=== PATIENT | female | born 1985 | race Caucasian/White ===

== ENCOUNTER → 2016-10-27 | Outpatient (CLI) | payer OTHER ==
[~2016-10-27] MED LIST: ACET-1256 PO; CYCL10TA6 PO; IBUP-1050 PO; METH4PAK4 PO; PRENTAB26 PO; SERT25TA PO; ZNTT/150 PO
--- NOTE | 2016-10-27 10:35 | DIAGNOSTIC IMAGING REPORT ---
LIMITED (US) CLINICAL HISTORY: LOW LYING PLACENTA COMPARISON STUDY: 09/27/2016 FINDINGS: A single alive intrauterine gestation was visualized. The maternal cervix measured 5 cm in length. The placenta is posterior, and ends 4 cm from the internal os. The fetus was in variable presentation. heart rate was 151. A detailed anatomic study was not performed. A single femur measurement was obtained. The femur measured 49 mm corresponding to an estimated postmenstrual age of 26 weeks and 3 days. IMPRESSION: Single live fetus in Federal presentation. The heart rate is 151. The placenta was posterior, and ended 4 cm from the internal os. Electronically signed by: Renzo Biggs M.D. 10/27/2016 10:33 AM Dictated Date/Time: 10/27/2016 10:31 AM
== END | disposition home or self-care (01) ==
LOC: C.ULTR 08:09
PROVIDERS: ATTEND Obstetrics & Gynecology
DX: O44.42 Low lying placenta NOS or without hemorrhage, second trimester (principal)

== ENCOUNTER 2016-12-20 11:24 | Observation (INO) | payer OTHER ==
[~2016-12-20 11:24] MED LIST changes: -PRENTAB26 PO; -ZNTT/150 PO
[2016-12-20] MEDS ORDERED: IV FLUIDS COMPLETED PRN (13:15)
--- NOTE | 2016-12-20 14:31 | HISTORY & PHYSICAL EXAMINATION ---
DATE OF ADMISSION: 12/20/2016 CHIEF COMPLAINT: Vaginal bleeding, intrauterine at 33 weeks gestation. HISTORY OF PRESENT ILLNESS: The patient is a 31-year-old 2, para 1, general health is good. She did have an episode of mid trimester bleeding at about 20 weeks during the present . At that time, she was ultrasounded and evaluated and she has not had any bleeding up until the day of admission. Her due date is well documented with first trimester ultrasound. She is due 02/03/2017. In 2014, she had a girl, 7 pounds at 38 and 1/2 weeks. She labored for 26 hours, pushed for 40 minutes. Her present has been uneventful except for an episode of bleeding at 20 weeks' gestation, which was evaluated with an ultrasound, in which eventually bleeding subsided. She called the morning of admission, said she had a vaginal pink discharge and some lower pelvic cramping. She was told to come into the hospital for evaluation. PAST MEDICAL HISTORY: She has a 2-year-old girl in good health. No history of rheumatic fever, heart disease, heart murmur, diabetes, tuberculosis. ALLERGIES: No known drug allergies. PAST SURGICAL HISTORY: She had a breast reduction at age 15. SOCIAL HISTORY: No smoking. No alcohol intake. Works as a clinical psychologist. FAMILY HISTORY: Mom is 49, in good health. Father 53, in good health. Has a half-sister, in good health. REVIEW OF SYSTEMS: She does have a history of migraine headaches. PHYSICAL EXAMINATION: GENERAL: Well developed, well-nourished 31-year-old white female, alert, oriented x3 and cooperative, in no acute distress, appears stated age. EYES: Conjunctivae are pink. Sclerae white, no evidence of jaundice. EARS: Had normal light reflex bilaterally. NOSE: Had normal mucosa. Septum is midline. There were no polyps. THROAT: Had no erythema or evidence of infection. Teeth are in good state of repair. HEAD: Normocephalic, normal distribution of hair. NECK: Supple. Trachea midline. Thyroid is not enlarged. There is no adenopathy appreciated. Both carotids are of good intensity. CHEST: Clear to auscultation and percussion. ABDOMEN: Abdominal size consistent with a 33-week intrauterine . There was no tenderness, no fundal tenderness. No CVA tenderness. MUSCULOSKELETAL: Revealed no calf tenderness. PELVIC: Revealed the presenting part to be floating. Cervix to be posterior, soft and closed. There was no blood on the examining glove. IMPRESSIONS OF THIS CASE: Status post breast reduction, history of mid trimester bleeding, intrauterine at 33 weeks with cramping and bleeding.
== END 2016-12-20 13:00 | disposition home or self-care (01) ==
LOC: C.OPB 11:24 → C.LD 11:25 → C.OPB 12:50 → C.LD 12:50
PROVIDERS: ADMIT Obstetrics & Gynecology; ATTEND Obstetrics & Gynecology
DX: O46.93 Antepartum hemorrhage, unspecified, third trimester (principal); Z3A.33 33 weeks gestation of pregnancy

== ENCOUNTER → 2017-01-05 | Outpatient (CLI) | payer OTHER ==
[~2017-01-05] MED LIST changes: +PRENTAB26 PO; +ZNTT/150 PO
== END | disposition home or self-care (01) ==
LOC: C.LABSPEC 14:58
PROVIDERS: ATTEND Obstetrics & Gynecology
DX: Z34.83 Encounter for supervision of other normal pregnancy, third trimester (principal)

== ENCOUNTER 2017-01-26 21:18 | Inpatient (IN) | payer OTHER ==
[~2017-01-26] VITALS: Ht 152.4 cm; Wt 71.8 kg
[~2017-01-26 21:18] MED LIST changes: -PRENTAB26 PO; -ZNTT/150 PO
[2017-01-26] MEDS ORDERED: LACTATED RINGER'S 1000ML 1,000 ML IV PRN (21:40)
[2017-01-26] MEDS ORDERED: DINOPROSTONE 10 MG INSERT PV STA (21:55)
[2017-01-26 22:04] LABS: HEMATOCRIT 33.2 % (37-47); MEAN CELL VOLUME 90.2 fL (80-100); MEAN CORPUSCULAR HEMOGLOBIN 30.7 pg (25-34); PLATELET COUNT 179 K/uL (130-400); RED BLOOD COUNT 3.68 M/uL (4.2-5.4); WHITE BLOOD COUNT 8.02 K/uL (4.8-10.8)
[2017-01-26 22:30] VITALS: Ht 152.4 cm; Wt 71.8 kg
[2017-01-26] MEDS ORDERED: PRENTAB26 PO (22:34)
[2017-01-26] MEDS ORDERED: ZNTT/150 PO (22:35)
[2017-01-27] MEDS ORDERED: LACTATED RINGER'S 1000ML 500 ML IV PRN ×2 (10:43→13:07)
[2017-01-27] MEDS ORDERED: OXYTOCIN 30 UNITS/500ML NSS IV PRN ×2 (10:45→19:00)
[2017-01-27] MEDS: LACTATED RINGER'S 1000ML 1,000 ML IV SCH ×2 (12:19→13:18)
[2017-01-27] MEDS ORDERED: BUPIVACAINE 0.25% 30 ML VIAL ONE (12:20)
[2017-01-27] MEDS ORDERED: EpHEDrine SULFATE INJ 50 MG/ML AMP ONE (12:21)
[2017-01-27] MEDS ORDERED: FENTANYL 2MCG/ML ROPIV 1.25MG/ML 100ML BAG EPI ONE (12:21)
[2017-01-27] MEDS ORDERED: FENTANYL CITRATE INJ 50 MCG/1 ML 2 ML VIAL ONE (12:21)
[2017-01-27] MEDS ORDERED: NALOXONE HCL INJ 1 MG in SODIUM CHLORIDE 0.9% 1000ML 1,000 ML IV PRN (13:07)
[2017-01-27] MEDS ORDERED: FENTANYL 2MCG/ML ROPIV 1.25MG/ML 100ML BAG EPI PRN (13:15)
[2017-01-27] MEDS ORDERED: NALBUPHINE HCL INJ 10 MG/ML AMP IV PRN (13:15)
[2017-01-27] MEDS ORDERED: EpHEDrine SULFATE INJ 50 MG/ML AMP IV PRN (13:15)
[2017-01-27] MEDS ORDERED: NALOXONE HCL INJ 0.4 MG/1 ML VIAL/CARP IV PRN (13:15)
[2017-01-27] MEDS ORDERED: DiphenhydrAMINE HCL 50 MG/ML VIAL IV PRN (13:15)
[2017-01-27] MEDS ORDERED: NURSING VERBAL MED ORDER ONE ×2 (16:30→16:45)
[2017-01-27] MEDS ORDERED: NURSING VERBAL MED ORDER SCH (16:30)
[2017-01-27] MEDS ORDERED: ACETAMINOPHEN 325 MG TAB ONE (16:54)
[2017-01-27] MEDS ORDERED: ONDANSETRON INJ 2 MG/ML 2 ML VIAL ONE (16:55)
[2017-01-27] MEDS ORDERED: OXYCODONE/ACETAMINOPHEN 5-325 TAB PO PRN (19:00)
[2017-01-27] MEDS ORDERED: SUPERCREAM 0.870 % 15GM JAR EXT PRN (19:00)
[2017-01-27] MEDS ORDERED: LANOLIN OINT EXT PRN ×2 (19:00)
[2017-01-27] MEDS ORDERED: ACETAMINOPHEN 325 MG TAB PO PRN (19:00)
[2017-01-27] MEDS ORDERED: ACETAMINOPHEN/CODEINE 300/30MG TAB PO PRN (19:00)
[2017-01-27] MEDS ORDERED: BENZOCAINE 20% AER SPR 82.5 GM CAN EXT PRN (19:00)
[2017-01-27] MEDS ORDERED: DIPHTHERIA/TETANUS/PERTUSSIS 0.5 ML SYR/VIAL IM. ONE (19:00)
[2017-01-27] MEDS ORDERED: HYDROCORTISONE ACETATE 25 MG SUPP PR PRN (19:00)
--- NOTE | 2017-01-27 19:07 | Anesthesia Procedure Note ---
Anesthesia Epidural Removal Nt Date & Time Jan 27, 2017 at 19:06 Vital Signs Pain Intensity: 0.0 Notes Mental Status: alert / awake / arousable, participated in evaluation Nausea / Vomiting: adequately controlled Pain: adequately controlled Airway Patency, RR, SpO2: stable & adequate BP & HR: stable & adequate Hydration State: stable & adequate Neuraxial Anesthesia: was administered Anesthetic Complications: no major complications apparent, pt satisfied with anesthetic care Epidural: removed without complications, with tip intact
[2017-01-27] MEDS ORDERED: ONDANSETRON INJ 2 MG/ML 2 ML VIAL IV PRN (19:30)
--- NOTE | 2017-01-27 19:31 | OPERATIVE REPORT ---
DATE OF OPERATION: 01/27/2017 DELIVERY NOTE The patient is a 31-year-old, 2, para 2. She is in good general health. Her blood type is B positive, she is rubella immune and vaginal beta strep screen negative. has been complicated by an unstable lie. She has been documented breech several times in the last 4 weeks. Her was confirmed by ultrasound and she is often switched from breech to vertex from one visit to another. On her last visit in the office, she was vertex. She was going to be 39 weeks' the following day and she was brought in for induction of labor. On admission, position was checked; she was found to be vertex, it was confirmed by bedside ultrasound. She was started off on a vaginal Cytotec tape. I left this in for 12 hours. She went from about 1 cm to about 3-4 with sporadic contractions. Eventually she had epidural, had membranes ruptured surgically and she was switched to IV Pitocin. She went to full dilatation and delivered a live female via direct occiput anterior position over an intact perineum. Nuchal cord was reduced over the head prior to delivery of the shoulders. Shoulders were delivered without difficulty. Infant was suctioned through the mouth and the nose prior to delivery of the body. After delivery, cord was clamped and cut by the father. Cord blood was taken with IV Pitocin running. The placenta was removed intact. Hemostasis was good. Inspection of the perineum revealed no lacerations. My own estimation at one and five minute Apgars were 8 and 9 respectively and estimated blood loss of 300 mL. I attest to the content of the Intraoperative Record and any orders documented therein. Any exceptio ns are noted below.
[2017-01-27 20:15] VITALS: BP 116/63; PULSE 97; TEMP 36.8
[2017-01-27] MEDS: IBUPROFEN 600 MG TAB PO PRN (22:05)
[2017-01-27] MEDS: DOCUSATE SODIUM 100 MG CAP PO SCH (22:10)
[2017-01-27 23:30] VITALS: BP 120/79; PULSE 97; TEMP 36.8
[2017-01-28 04:00] VITALS: BP 108/71; PULSE 68; TEMP 36.5
[2017-01-28] MEDS: IBUPROFEN 600 MG TAB PO PRN ×2 (04:06→08:48)
[2017-01-28 07:05] LABS: HEMATOCRIT 34.2 % (37-47)
[2017-01-28] MEDS: FERROUS SULFATE 325 MG TAB PO SCH (08:43)
[2017-01-28] MEDS: DOCUSATE SODIUM 100 MG CAP PO SCH ×2 (08:43→20:02)
[2017-01-28] MEDS: PRENATAL VITAMIN TAB PO SCH (08:44)
[2017-01-28 09:10] VITALS: BP 97/65; PULSE 96; TEMP 36.6; O2SAT 96
[2017-01-28] MEDS: ACETAMINOPHEN/CODEINE 300/30MG TAB PO PRN ×3 (12:27→20:30)
--- NOTE | 2017-01-28 12:31 | Progress Note ---
Subjective Jan 28, 2017. Subjective conversation w/ patient Ambulation: ambulating normally Voiding: no voiding problems Passing Gas: Yes Diet Tolerance: Regular Diet Lochia: Small Feeding Type: Breast Feeding Review of Systems Constitutional: + fever Objective Vital Signs Date Time Temp Pulse Resp B/P Pulse Ox O2 Delivery O2 Flow Rate FiO2 01/28/17 09:10 36.6 96 16 97/65 96 Room Air 01/28/17 09:10 96 Room Air 01/28/17 04:00 36.5 68 18 108/71 Room Air 01/27/17 23:30 36.8 97 16 120/79 Room Air 01/27/17 20:15 36.8 97 20 116/63 Room Air Physical Exam General Appearance: WELL-APPEARING Abdomen: normal bowel sounds, non tender Fundus: Firm, Non-Tender Extremities: no pedal edema, no calf tenderness Laboratory Results Last 24 Hours Test 01/28/17 06:40 Hemoglobin 11.6 g/dL Hematocrit 34.2 % Assessment and Plan Post- Day#: 1
[2017-01-28 12:40] VITALS: BP 108/70; PULSE 61; TEMP 36.5; O2SAT 97
[2017-01-28 16:30] VITALS: BP 104/65; PULSE 69; TEMP 36.5; O2SAT 97
[2017-01-28] MEDS ORDERED: BISACODYL 5 MG TABEC PO SCH (20:00)
[2017-01-29 00:35] VITALS: BP 104/67; PULSE 81; TEMP 36.7; O2SAT 94
[2017-01-29] MEDS: ACETAMINOPHEN/CODEINE 300/30MG TAB PO PRN ×2 (01:34→09:25)
[2017-01-29] MEDS ORDERED: BISACODYL 10 MG SUPP PR PRN (07:00)
--- NOTE | 2017-01-29 08:55 | Progress Note ---
Subjective Jan 29, 2017. Subjective conversation w/ patient Ambulation: ambulating normally Voiding: no voiding problems Passing Gas: Yes Diet Tolerance: Regular Diet Lochia: Small Feeding Type: Breast Feeding Review of Systems Constitutional: + fever Objective Vital Signs Date Time Temp Pulse Resp B/P Pulse Ox O2 Delivery O2 Flow Rate FiO2 01/29/17 00:35 94 Room Air 01/29/17 00:35 36.7 81 16 104/67 94 Room Air 01/28/17 16:30 97 Room Air 01/28/17 16:30 36.5 69 14 104/65 97 Room Air 01/28/17 12:40 36.5 61 16 108/70 97 Room Air 01/28/17 09:10 36.6 96 16 97/65 96 Room Air 01/28/17 09:10 96 Room Air Physical Exam General Appearance: WELL-APPEARING Abdomen: non tender Fundus: Firm, Non-Tender Extremities: no pedal edema, no calf tenderness Assessment and Plan Post- Day#: 2
--- NOTE | 2017-01-29 08:57 | Discharge Instructions ---
Discharge Instructions Date of Service Jan 29, 2017. Admission Reason for Admission: IUP Discharge Discharge Diagnosis / Problem: unstable lie Discharge Goals Goal(s): Routine recovery after delivery Activity Recommendations Activity Limitations: as noted below ACTIVITY RECOMMENDATIONS: * Gradual return to full activity over the next 2-3 weeks. * No lifting - nothing heavier than baby over the next 2-3 weeks. * Do not engage in vigorous exercise, sexual activity or sports until cleared by your physician. * Do not drive or operate any motorized equipment until cleared by your physician. * You may shower/bathe daily. DIET: Resume Previous Diet If Breast-feeding: * Increase caloric intake by 500 calories, eat 3 well balanced meals, 2 high protein snacks a day and drink 6-8 8oz. glasses of fluid per day. BREAST CARE: If you are not breast feeding: * Wear a supportive bra 24 hours a day for one to two weeks. * Avoid stimulating your breasts and nipples as much as possible during the first few weeks after delivery. * When taking a shower, have the warm water hit your back, not breasts. * When your breasts feel full, apply ice packs. Usually three to four times a day helps ease the discomfort. * Take a mild pain medication (Tylenol / Motrin) when you are uncomfortable. If breast feeding: * Use breast milk to lubricate nipples. Lansinoh cream may be used for sore nipples. You do not need to remove cream prior to breast feeding. If using a different brand of cream, check the label for directions regarding removal of cream prior to nursing. * Wear a supportive bra. * If having problems with breasts or breast feeding, call a market intelligence consultant or your health care provider. OVER THE COUNTER MEDICATION: * For discomfort or pain, you may use Acetaminophen (Tylenol), Ibuprofen (Advil ), or Naproxen (Aleve) following the package directions. * For constipation you may use Colace following the package directions. SPECIAL CARE INSTRUCTIONS: * Vaginal rest (no tampons, douching, intercourse) until after doctor 's visit. * control as discussed with doctor. * Verbalizes understanding of car seat law as reviewed with patient nursing. * Car Seat hand-out given and reviewed with patient by nursing. * Shaken baby information reviewed with patient by nursing. Call you doctor if: * Temperature greater than or equal to 100.4 degrees F or 38.0 degrees C. Take your temperature twice daily for a week. * Bleeding becomes heavier than the heaviest part of your period - saturating a sanitary pad within an hour. * Passing large clots. * Bleeding has a foul smelling odor. * Signs and symptoms of phlebitis: leg pain, warm, red or swollen area on leg. * "Baby Blues" lasting longer than two weeks. ++ If you have had a and incision has increased pain, redness, swelling, presence of any drainage, or if the incision starts to open up. If you have any questions or concerns, call your health care practitioner at [phone]. FOLLOW-UP VISIT: Please call the office at to schedule a 6 week examination. . Instructions / Follow-Up Instructions / Follow-Up ACTIVITY RECOMMENDATIONS: * Gradual return to full activity over the next 2-3 weeks. * No lifting - nothing heavier than baby over the next 2-3 weeks. * Do not engage in vigorous exercise, sexual activity or sports until cleared by your physician. * Do not drive or operate any motorized equipment until cleared by your physician. * You may shower/bathe daily. DIET: Resume Previous Diet If Breast-feeding: * Increase caloric intake by 500 calories, eat 3 well balanced meals, 2 high protein snacks a day and drink 6-8 8oz. glasses of fluid per day. BREAST CARE: If you are not breast feeding: * Wear a supportive bra 24 hours a day for one to two weeks. * Avoid stimulating your breasts and nipples as much as possible during the first few weeks after delivery. * When taking a shower, have the warm water hit your back, not breasts. * When your breasts feel full, apply ice packs. Usually three to four times a day helps ease the discomfort. * Take a mild pain medication (Tylenol / Motrin) when you are uncomfortable. If breast feeding: * Use breast milk to lubricate nipples. Lansinoh cream may be used for sore nipples. You do not need to remove cream prior to breast feeding. If using a different brand of cream, check the label for directions regarding removal of cream prior to nursing. * Wear a supportive bra. * If having problems with breasts or breast feeding, call a market intelligence consultant or your health care provider. OVER THE COUNTER MEDICATION: * For discomfort or pain, you may use Acetaminophen (Tylenol), Ibuprofen (Advil ), or Naproxen (Aleve) following the package directions. * For constipation you may use Colace following the package directions. SPECIAL CARE INSTRUCTIONS: * Vaginal rest (no tampons, douching, intercourse) until after doctor 's visit. * control as discussed with doctor. * Verbalizes understanding of car seat law as reviewed with patient nursing. * Car Seat hand-out given and reviewed with patient by nursing. * Shaken baby information reviewed with patient by nursing. Call you doctor if: * Temperature greater than or equal to 100.4 degrees F or 38.0 degrees C. Take your temperature twice daily for a week. * Bleeding becomes heavier than the heaviest part of your period - saturating a sanitary pad within an hour. * Passing large clots. * Bleeding has a foul smelling odor. * Signs and symptoms of phlebitis: leg pain, warm, red or swollen area on leg. * "Baby Blues" lasting longer than two weeks. ++ If you have had a and incision has increased pain, redness, swelling, presence of any drainage, or if the incision starts to open up. If you have any questions or concerns, call your health care practitioner at [phone]. FOLLOW-UP VISIT: Please call the office at to schedule a 6 week examination. Current Hospital Diet Patient's current hospital diet: Regular OB Diet Discharge Diet Recommended Diet: Regular Diet Pending Studies Studies pending at discharge: no Medical Emergencies . Who to Call and When: Medical Emergencies: If at any time you feel your situation is an emergency, please call 911 immediately. . Non-Emergent Contact Non-Emergency issues call your: Nurse Informaticist Call Non-Emergent contact if: temperature is above 100.5 . . "Provider Documentation" section prepared by Javier Meade. . VTE Core Measure Inpt VTE Proph given/why not?: Treatment not indicated
[2017-01-29 09:00] VITALS: BP 108/73; PULSE 68; TEMP 36.7; O2SAT 97
[2017-01-29] MEDS: FERROUS SULFATE 325 MG TAB PO SCH (09:24)
[2017-01-29] MEDS: PRENATAL VITAMIN TAB PO SCH (09:24)
[2017-01-29] MEDS: DOCUSATE SODIUM 100 MG CAP PO SCH (09:24)
[2017-01-29 12:55] VITALS: BP_DIAS 73; PULSE 68; TEMP 36.7
== END 2017-01-29 12:55 | disposition home or self-care (01) | DRG 775 ==
LOC: C.LD 21:18 → C.OBG 01-27 20:26
PROVIDERS: ADMIT Obstetrics & Gynecology; ATTEND Obstetrics & Gynecology
PROC: 3E0P7GC Introduction of Other Therapeutic Substance into Female Reproductive, Via Natural or Artificial Opening (ICD-10-PCS; principal; 2017-01-27)
PROC: 10E0XZZ Delivery of Products of Conception, External Approach (ICD-10-PCS; principal; 2017-01-27)
DX: O32.0XX0 Maternal care for unstable lie, not applicable or unspecified (principal); O69.81X0 Labor and delivery complicated by cord around neck, without compression, not applicable or unspecified; O99.02 Anemia complicating childbirth; D64.9 Anemia, unspecified; O99.62 Diseases of the digestive system complicating childbirth; K21.9 Gastro-esophageal reflux disease without esophagitis; Z37.0 Single live birth; Z3A.39 39 weeks gestation of pregnancy

== ENCOUNTER → 2017-03-09 | Outpatient (CLI) | payer OTHER ==
[~2017-03-09] MED LIST changes: -ACET-1256 PO; -CYCL10TA6 PO; -IBUP-1050 PO; -METH4PAK4 PO; +PRENTAB26 PO; -SERT25TA PO; +ZNTT/150 PO
== END | disposition home or self-care (01) ==
LOC: C.PAPS 10:02
PROVIDERS: ATTEND Obstetrics & Gynecology
DX: Z39.2 Encounter for routine postpartum follow-up (principal)

== ENCOUNTER → 2017-04-07 | Outpatient (CLI) | payer OTHER | END | disposition home or self-care (01) | LOC: C.LAB 17:36 | PROVIDERS: ATTEND Obstetrics & Gynecology | DX: N92.5 Other specified irregular menstruation (principal) ==

== ENCOUNTER 2020-01-28 00:06 | Inpatient (IN) ==
[2020-01-28] MEDS ORDERED: OXYTOCIN 30 UNITS/500 ML BAG IV PRN ×2 (00:11→02:53)
[2020-01-28] MEDS: LACTATED RINGER'S 1,000 ML IV PRN ×2 (00:54→09:15)
[2020-01-28 00:58] LABS: Hematocrit (blood only) 35.5 % (37-47); Hemoglobin 12.1 g/dL (12.0-16.0); Mean Corpuscular Volume 88.1 fL (80-100); Mean Platelet Volume 10.2 fL (7.4-10.4); Platelet Count 250 K/uL (130-400); RDW Coefficient of Variation 12.9 % (11.5-14.5); RDW Standard Deviation 41.3 fL (36.4-46.3); Red Blood Count 4.03 M/uL (4.2-5.4); White Blood Count 9.56 K/uL (4.8-10.8)
[2020-01-28] MEDS ORDERED: ePHEDrine sulfate 50 MG/ML AMP ONE (01:01)
[2020-01-28] MEDS ORDERED: fentaNYL citrate 100 MCG/2 ML VIAL ONE (01:02)
[2020-01-28] MEDS ORDERED: fentaNYL 2MCG/ML ROPIV 1.25MG/ML 100 ML BAG EPI ONE (01:02)
[2020-01-28] MEDS ORDERED: BUPIVACAINE 0.25% 30 ML VIAL ONE (01:02)
[2020-01-28 01:16] LABS: Mean Corpuscular Hgb Conc 34.1 g/dL (32-36)
[2020-01-28] MEDS ORDERED: DiphenhydrAMINE HCL 50 MG/ML VIAL IV PRN (02:01)
[2020-01-28] MEDS ORDERED: ONDANSETRON INJ 2 MG/ML 2 ML VIAL IV PRN (02:01)
[2020-01-28] MEDS ORDERED: fentaNYL 2MCG/ML ROPIV 1.25MG/ML 100 ML BAG EPI PRN (02:01)
[2020-01-28] MEDS ORDERED: NALBUPHINE HCL INJ 10 MG/ML AMP IV PRN (02:01)
[2020-01-28] MEDS ORDERED: ePHEDrine sulfate 50 MG/ML AMP IV PRN (02:01)
[2020-01-28] MEDS ORDERED: NALOXONE HCL 1 MG in SODIUM CHLORIDE 0.9% 1000ML 1,000 ML IV PRN (02:01)
[2020-01-28] MEDS ORDERED: PROMETHAZINE HCL 6.25 MG in SODIUM CHLORIDE 0.9% 50 ML IV PRN (02:01)
[2020-01-28] MEDS ORDERED: NALOXONE HCL 0.4 MG/1 ML VIAL/CARP IV PRN (02:01)
--- NOTE | 2020-01-28 02:01 | Anesthesiology Consultation ---
Date of Service January 28, 2020 Assessment & Plan (1) Encounter for pre-operative examination: Chart Review Chart Review: Patient NOT seen in Pre Admission Testing and Acceptable Risk for Labor Epidural Consults Requested none ASA ASA2 Proposed Anesthesia Anesthesia Type: Labor Epidural Risk / Benefits Reviewed With: PT / POA / Parent / Guardian, Accepts Plan and Informed Consent Obtained History Height/Weight Height: 5 ft Weight: 70.76 kg Allergies Allergy/AdvReac Type Severity Reaction Status Date / Time No Known Allergies Allergy Verified 01/28/20 00:15 Medications Home Medications Medication Instructions Recorded Confirmed Last Taken vit-iron fum-folic ac 1 tab PO DAILY 01/28/20 01/28/20 01/27/20 08:00 [ Vitamin] Active Medications Generic Name Dose Route Start Last Admin Trade Name Freq PRN Reason Stop Dose Admin Lactated Ringer's 1,000 mls @ 125 mls/hr 01/28/20 00:11 01/28/20 01:52 Lr IV 01/30/20 00:10 125 mls/hr .Q8H PRN Infusion L&D Protocol Protocol NPO Date Last Intake of Fluids: 01/27/20 Time Last Intake of Fluids: 23:00 Date Last Intake of Solids: 01/27/20 Time Last Intake of Solids: 19:00 Exercise / Class Metabolic Activity II 4-5 Yardwork/Stairs/Walk up hill Past Surgical History Surgical History H/O bilateral breast reduction surgery History of oral surgery Past Anesthesia History No Hx of Anesthesia Complications and No Family Hx of Anesthesia Complications History of PONV No Hx of PONV and No Hx of Motion Sickness Social History Smoking Status: Never smoker Hx Alcohol Use: No Hx Substance Use: No substance use type: does not use Physical Exam Vital Signs Last Vital Signs Temp 36.7 C 01/28/20 00:22 Pulse 92 H 01/28/20 01:58 Resp 22 01/28/20 01:52 BP 99/61 L 01/28/20 01:58 Pulse Ox 100 01/28/20 01:56 ENMT Mouth: no dentition abnormality Thyromental Distance: > or= 3.5 Finger Breadths Mallampati Class: II Neck normal visual inspection Respiratory normal respiratory effort Auscultation: lungs clear to auscultation bilaterally Cardiovascular Rate/Rhythm: regular rate and regular rhythm Psychiatric Orientation: alert Testing Laboratory Results 01/28/20 00:48
[2020-01-28] MEDS ORDERED: OXYCODONE/ACETAMINOPHEN 5mg/325mg TAB PO PRN (02:53)
[2020-01-28] MEDS ORDERED: BENZOCAINE 20% AER SPR 82.5 GM CAN EXT PRN (02:53)
[2020-01-28] MEDS ORDERED: HYDROCORTISONE ACETATE 25 MG SUPP PR PRN (02:53)
[2020-01-28] MEDS ORDERED: ACETAMINOPHEN 325 MG TAB PO PRN (02:53)
[2020-01-28] MEDS ORDERED: SUPERCREAM 0.870% 15 GM JAR EXT PRN (02:53)
[2020-01-28] MEDS ORDERED: DIPHTHERIA/TETANUS/PERTUSSIS 0.5 ML SYR/VIAL IM ONE (02:53)
[2020-01-28] MEDS ORDERED: ACETAMINOPHEN W/CODEINE #3 1 TAB PO PRN (02:53)
[2020-01-28] MEDS: IBUPROFEN 600 MG TAB PO PRN ×3 (07:07→20:24)
--- NOTE | 2020-01-28 08:20 | Anesthesia Procedure Note ---
Date of Service January 28, 2020 Anesthesia Post Epidural Note Vital Signs Vital Signs: Temp Pulse Resp BP Pulse Ox 99.1 F 93 H 18 98/57 L 100 01/28/20 07:07 01/28/20 07:07 01/28/20 07:07 01/28/20 07:07 01/28/20 02:36 Pain Intensity Bilateral Lower Abdomen: Pain Intensity: 9 Notes Mental Status: alert / awake / arousable and participated in evaluation Nausea / Vomiting: adequately controlled Pain: adequately controlled Airway Patency, RR, SpO2: stable & adequate BP & HR: stable & adequate Hydration State: stable & adequate Neuraxial Anesthesia: was administered and sensory block resolved Anesthetic Complications: no major complications apparent and Pt Satisfied with anesthetic care Epidural: Removed without complications and With tip intact
[2020-01-28] MEDS ORDERED: MAGNESIUM SULFATE 4GM / WTR 100 ML BAG IV ONE (09:16)
--- NOTE | 2020-01-28 09:48 | Hospitalist Consultation ---
Date of Consultation January 28, 2020 Assessment & Plan (1) Chest pressure: chest pressure ddx -cardiac - coronary dissection unlikely w reassuring EKG and bedside echo; serial troponin, formal echo, clinical follow up - takutsobo's possible as apex not able to be extremely well visualized on bedside echo - formal echo ordered urgently, tx to tele, serial troponins, clinical f/u - other cardiomyopathy possible but not likely; CHF seems unlikely w clear lungs - although suboptimal exam - 100% pulse ox, although was on 10L oxymask -- follow clinically, await echo -pulmonary - VTE possible - bedside venous dopplers negative -- ordering formal for better look; Ddimer ordered - high probability it will be positive simply from /L&D/etc but if negative and venous dopplers negative than need for considering CT chest if ddx still in doubt moves far lower - does not have fever/cough or other s/s infection - and family has been quarantined for 5wks with little to no outside contact per making COVID19 low probability; obviously follow clinically and re-eval if situation changes. no noted n/v to cause aspiration, no reason/risk for CAP/HAP right now - follow - no other lung hx of note -GI -has had significant reflux during end of , possible that she's having bad bout of reflux causing pressure - particularly given significant distress with fortunately little objectively worrisome - will give maalox+viscous lidocaine as therapeutic trial -OB related - Hgb stable early this AM, and no clinically significant bleeding so acute blood loss anemia unlikely; repeat Hgb is pending - does have headache - LFTs and CBC pending, Mag ordered by laundry aid in case of late eclamptic picture - will d/w OB as far as any other L&D/ specific syndromes that could be causative for now: move to tele, give maalox+lidocaine, continue IV mag, echo, venous dopplers, CBC, CMP, trop, Ddimer, close clinical f/u History of Present Illness Reason for Consultation: abnormal EKG Requesting Physician: Dr Meade Attending Physician: Javier Meade MD History of Present Illness responded to code purple - consulted for management of chest pressure. pt 34y/o only about 8hrs per discussion with nursing - was doing well until having fairly abrupt onset of chest pressure not long before consult/code purple - notes a feeling like her stomach is coming up into her chest. significant pressure causing a good deal of distress. not a lot of sob proportionate to the pressure. no cough. no f/c/s. she and have been trying to strictly quarantine the last 5wks or so, no one at home sick no known sick contacts no significant family hx - her grandfather apparently had an ME young but no other cardiac disease of note, no disease in first degree relatives. no known VTE fam hx. L&D was apparently uncomplicated per discussion with nursing and no significant visualized blood loss, no significant/abnormal bleeding since. Allergies Allergy/AdvReac Type Severity Reaction Status Date / Time No Known Allergies Allergy Verified 01/28/20 00:15 Home Medications Home Medications Medication Instructions Recorded Confirmed Type vit-iron fum-folic ac 1 tab PO DAILY 01/28/20 01/28/20 History [ Vitamin] Patient History Surgical History H/O bilateral breast reduction surgery History of oral surgery Family History Grandfather Myocardial infarction Social History Preferred Language: Divehi Communication Ability: Effective Joint Finisher Required: No Beliefs That Will Affect Care: None marital status: Current Living Situation: Family Feels Safe at Home: Yes Safety Concerns: Feels Safe At This Time Smoking Status: Never smoker Hx Alcohol Use: No Hx Substance Use: No Review of Systems Review of Systems: All systems reviewed & are unremarkable except as noted in HPI & below Physical Exam Physical Exam: gen aao but appearing fatigued/lethargic, laying in bed wearing mask O2 heent nc at mmm no grossly notable JVD cardio reg no r/m/g lungs somewhat diminished bibasilar but no r/r/w moderate effort. no accessory muscle use. appears somewhat uncomfortable breathing but otherwise does not show visible signs of respiratory distress (no accessory muscles/belly breathing/tachypnea) abd soft nd nt no guarding no rebound. fundus a little difficult for me to palpate but does not feel abnormal - in discussions with nursing nothing has been abnormal to their exam in this regard either ext - no c/c/e no calf tenderness skin - ?mild pallor although i've never seen her before, no rashes no icterus neuro - grossly cn 2-12 are intact, gross motor sensory are grossly intact mental - somewhat fatigued/lethargic but appears to have appropriate recent and remote recall, mood/affect fitting to the situation EKGs - NSR, nonspecific flattening of T in III, significant artifact I, II on first tracing but no tachycardia and does not grossly fit S1/Q3/T3 pattern; repeat tracing no artifact, ongoing nonspecific flat T in III otherwise normal sinus. neither EKG shows significant ST elevations or depressions, no ischemic type changes. bedside US done by Dr Min - see his notes for further details but no evidence of DVT or gross LV dysfunction Results & Data Results & Data ([facility]) Vital Signs (Past 12 Hours) Vital Signs Temp Pulse Resp BP Pulse Ox 01/28/20 07:07 99.1 F 93 H 18 98/57 L 01/28/20 05:27 102 H 18 104/55 L 01/28/20 05:07 75 103/57 L 01/28/20 04:52 99.1 F 88 18 107/62 01/28/20 04:37 81 104/60 01/28/20 04:22 83 20 108/62 01/28/20 04:08 96 H 107/75 01/28/20 03:52 87 20 113/58 L 01/28/20 03:37 77 20 107/59 L 01/28/20 03:22 100 H 20 115/57 L 01/28/20 03:08 98 H 20 103/55 L 01/28/20 02:54 90 102/54 L 01/28/20 02:53 98.8 F 20 01/28/20 02:46 82 100/61 01/28/20 02:36 104 H 100 01/28/20 02:31 96 H 100 01/28/20 02:26 110 H 100 01/28/20 02:24 20 01/28/20 02:21 94 H 100 01/28/20 02:16 87 100 01/28/20 02:15 90 20 107/63 01/28/20 02:11 89 100 01/28/20 02:09 102 H 104/60 01/28/20 02:07 85 20 109/62 01/28/20 02:06 91 H 100 01/28/20 02:05 99.1 F 01/28/20 02:04 90 20 109/73 01/28/20 02:01 89 107/63 99 01/28/20 01:58 92 H 22 99/61 L 01/28/20 01:56 83 100 01/28/20 01:55 89 105/59 L 01/28/20 01:52 94 H 22 104/62 01/28/20 01:51 91 H 100 01/28/20 01:49 95 H 102/61 01/28/20 01:46 103 H 100 01/28/20 01:45 103 H 110/61 01/28/20 01:43 100 H 223/151 H 01/28/20 01:41 102 H 100 01/28/20 01:36 106 H 97 01/28/20 01:33 94 H 22 101/57 L 01/28/20 01:31 99 H 100 01/28/20 01:26 110 H 98 01/28/20 01:24 100 H 94 01/28/20 01:21 107 H 100 01/28/20 01:16 117 H 96 01/28/20 00:27 99 H 124/77 01/28/20 00:22 98.1 F 22 PG Care Time/CCT Total # of Minutes Spent Total Time Spent with Patient: Total time spent is greater than 50% in coordination of care (as documented) at patient's floor/unit and/or counseling patient: Coding Level of Care Code 46329 Inpt Consult Level 5 Diagnoses Chest pressure R07.89
[2020-01-28] MEDS ORDERED: MAGNESIUM SULFATE / D5W 1 GM/100 ML BAG IV STA (09:58)
[2020-01-28] MEDS ORDERED: LIDOCAINE HCL VISCOUS SOLN 2% 15 ML UDC PO ONE (09:58)
[2020-01-28] MEDS ORDERED: ALUMINUM/MAGNESIUM SUSP 30 ML UDC PO STA (09:58)
[2020-01-28 10:05] LABS: Basophils # (auto) 0.05 K/uL (0-0.2); Basophils % (auto) 0.5 %; Eosinophils # (auto) 0.05 K/uL (0-0.5); Eosinophils % (auto) 0.5 %; Hemoglobin 10.2 g/dL (12.0-16.0); Immature Granulocytes # (auto) 0.04 K/uL (0.00-0.02); Immature Granulocytes % (auto) 0.4 %; Lymphocytes # (auto) 1.85 K/uL (1.2-3.4); Lymphocytes % (auto) 16.9 %; Mean Corpuscular Hemoglobin 30.2 pg (25-34); Mean Corpuscular Volume 88.8 fL (80-100); Mean Platelet Volume 10.4 fL (7.4-10.4); Monocytes # (auto) 0.84 K/uL (0.11-0.59); Monocytes % (auto) 7.7 %; Neutrophils # (auto) 8.11 K/uL (1.4-6.5); Platelet Count 203 K/uL (130-400); RDW Standard Deviation 41.6 fL (36.4-46.3); Red Blood Count 3.38 M/uL (4.2-5.4); White Blood Count 10.94 K/uL (4.8-10.8)
--- NOTE | 2020-01-28 10:05 | Communication Note ---
Date of Service: January 28, 2020 Code purple response Patient is a 34-year-old female who had a spontaneous vaginal delivery approximately 2 hours ago. She has not had extensive bleeding, there was no significant trauma or complications. Patient was up to the bathroom and started complaining of worsening headache and a chest pressure where "her stomach was coming up through her esophagus". The patient had an epidural it was removed approximately 30 minutes prior. Vital signs were reviewed: Not hypertensive Fundus felt firm assisted between umbilicus and pubic symphysis Bilateral patellar reflexes were brisk however not hyperreflexic I performed a limited two-point compression ultrasound, bilateral common femorals were completely collapsible, bilateral popliteal veins were collapsible EKG performed x2 last EKG revealed normal sinus rhythm with nonspecific ST changes: T wave flattening in lead III Limited bedside echo revealed normal systolic function, respiratory variation in IVC Discussed the case with Dr. Kalin Martinez, DO, started four grams magnesium for brisk reflexes and headache. Transfer to telemetry, obtain formal echo and formal venous duplex Coding Level of Care Code None
[2020-01-28 10:13] LABS: Alanine Aminotransferase 15 U/L (12-78); Albumin Level 2.1 gm/dl (3.4-5.0); Aspartate Aminotransferase 19 U/L (15-37); BUN Creatinine Ratio 11.1 (10-20); Blood Urea Nitrogen 8 mg/dl (7-18); Calcium 8.8 mg/dl (8.5-10.1); Carbon Dioxide 22 mmol/L (21-32); Chloride 106 mmol/L (98-107); Creatinine Clr Calc Pharmacy 92.8 ml/min; Est GFR (African American) 120.5; Glucose 77 mg/dl (70-99); Potassium 3.5 mmol/L (3.5-5.1); Sodium 138 mmol/L (136-145)
[2020-01-28 10:18] LABS: Albumin Globulin Ratio 0.6 (0.9-2); Alkaline Phosphatase 151 U/L (45-117); Bilirubin,Total 0.2 mg/dl (0.2-1); Globulin 3.7 gm/dl (2.5-4.0); Total Protein 5.8 gm/dl (6.4-8.2); Troponin I < 0.015 ng/ml (0-0.045)
[2020-01-28 10:28] LABS: D Dimer 780 ug/L FEU (0-500)
[2020-01-28] MEDS: DOCUSATE SODIUM 100 MG CAP PO SCH ×2 (10:53→20:24)
[2020-01-28] MEDS: PRENATAL VITAMIN 1 TAB PO SCH (10:54)
--- NOTE | 2020-01-28 10:56 | Obstetrical Progress Note ---
Date of Service January 28, 2020 Assessment & Plan Admission and Anticipated Discharge Date Admission Date: January 28, 2020 Physical Exam Physical Exam: patient had episode of chest pain and disorientation pulse ox 97 % tachycardia present code purple called patient evaluated by Dr Min no calf tenderness noted bedside doppler negative vaginal bleeding scant hgb 10.2 patient will be transfered Results & Data ([facility]) Vital Signs (Past 12 Hours) Vital Signs Temp Pulse Resp BP Pulse Ox 01/28/20 07:07 37.3 C 93 H 18 98/57 L 01/28/20 05:27 102 H 18 104/55 L 01/28/20 05:07 75 103/57 L 01/28/20 04:52 37.3 C 88 18 107/62 01/28/20 04:37 81 104/60 01/28/20 04:22 83 20 108/62 01/28/20 04:08 96 H 107/75 01/28/20 03:52 87 20 113/58 L 01/28/20 03:37 77 20 107/59 L 01/28/20 03:22 100 H 20 115/57 L 01/28/20 03:08 98 H 20 103/55 L 01/28/20 02:54 90 102/54 L 01/28/20 02:53 37.1 C 20 01/28/20 02:46 82 100/61 01/28/20 02:36 104 H 100 01/28/20 02:31 96 H 100 01/28/20 02:26 110 H 100 01/28/20 02:24 20 01/28/20 02:21 94 H 100 01/28/20 02:16 87 100 01/28/20 02:15 90 20 107/63 01/28/20 02:11 89 100 01/28/20 02:09 102 H 104/60 01/28/20 02:07 85 20 109/62 01/28/20 02:06 91 H 100 01/28/20 02:05 37.3 C 01/28/20 02:04 90 20 109/73 01/28/20 02:01 89 107/63 99 01/28/20 01:58 92 H 22 99/61 L 01/28/20 01:56 83 100 01/28/20 01:55 89 105/59 L 01/28/20 01:52 94 H 22 104/62 01/28/20 01:51 91 H 100 01/28/20 01:49 95 H 102/61 01/28/20 01:46 103 H 100 01/28/20 01:45 103 H 110/61 01/28/20 01:43 100 H 223/151 H 01/28/20 01:41 102 H 100 01/28/20 01:36 106 H 97 01/28/20 01:33 94 H 22 101/57 L 01/28/20 01:31 99 H 100 01/28/20 01:26 110 H 98 01/28/20 01:24 100 H 94 01/28/20 01:21 107 H 100 01/28/20 01:16 117 H 96 01/28/20 00:27 99 H 124/77 01/28/20 00:22 36.7 C 22
--- NOTE | 2020-01-28 11:03 | Obstetrical Progress Note ---
Date of Service January 28, 2020 Assessment & Plan Admission and Anticipated Discharge Date Admission Date: January 28, 2020 Physical Exam Physical Exam: patient had episode of chest pain and disorientation at that time oxygen saturation was 97 % bed side doppler of the heart and both calves was negative EKG some tachycardia no calf tenderness abdomen soft and non tender tolerating regular diet vaginal bleeding scant hgb 10.2 will transfer off the maternity floor for 24 hours of monitoring discussed the case with Dr Min in person Results & Data ([facility]) Vital Signs (Past 12 Hours) Vital Signs Temp Pulse Resp BP Pulse Ox 01/28/20 07:07 37.3 C 93 H 18 98/57 L 01/28/20 05:27 102 H 18 104/55 L 01/28/20 05:07 75 103/57 L 01/28/20 04:52 37.3 C 88 18 107/62 01/28/20 04:37 81 104/60 01/28/20 04:22 83 20 108/62 01/28/20 04:08 96 H 107/75 01/28/20 03:52 87 20 113/58 L 01/28/20 03:37 77 20 107/59 L 01/28/20 03:22 100 H 20 115/57 L 01/28/20 03:08 98 H 20 103/55 L 01/28/20 02:54 90 102/54 L 01/28/20 02:53 37.1 C 20 01/28/20 02:46 82 100/61 01/28/20 02:36 104 H 100 01/28/20 02:31 96 H 100 01/28/20 02:26 110 H 100 01/28/20 02:24 20 01/28/20 02:21 94 H 100 01/28/20 02:16 87 100 01/28/20 02:15 90 20 107/63 01/28/20 02:11 89 100 01/28/20 02:09 102 H 104/60 01/28/20 02:07 85 20 109/62 01/28/20 02:06 91 H 100 01/28/20 02:05 37.3 C 01/28/20 02:04 90 20 109/73 01/28/20 02:01 89 107/63 99 01/28/20 01:58 92 H 22 99/61 L 01/28/20 01:56 83 100 01/28/20 01:55 89 105/59 L 01/28/20 01:52 94 H 22 104/62 01/28/20 01:51 91 H 100 01/28/20 01:49 95 H 102/61 01/28/20 01:46 103 H 100 01/28/20 01:45 103 H 110/61 01/28/20 01:43 100 H 223/151 H 01/28/20 01:41 102 H 100 01/28/20 01:36 106 H 97 01/28/20 01:33 94 H 22 101/57 L 01/28/20 01:31 99 H 100 01/28/20 01:26 110 H 98 01/28/20 01:24 100 H 94 01/28/20 01:21 107 H 100 01/28/20 01:16 117 H 96 01/28/20 00:27 99 H 124/77 01/28/20 00:22 36.7 C 22
--- NOTE | 2020-01-28 12:50 | Ultrasound Report ---
BILATERAL LOWER EXTREMITY VENOUS DOPPLER HISTORY: Acute chest pain/pressure chest pressure r/o DVT COMPARISON STUDY: None. FINDINGS: There is normal compressibility, flow, and augmentation within the bilateral lower extremit y deep venous systems. IMPRESSION: No DVT within the right or left lower extremity. ACT 112: Negative or not required by law. Electronically signed by: Tung Reinoso M.D. 01/28/2020 12:48 PM
--- NOTE | 2020-01-28 16:31 | XCELERA ---
[id number] [id number]
--- NOTE | 2020-01-28 17:27 | Electrocardiogram Report ---
Test Reason : Blood Pressure : / mmHG Vent. Rate : 070 BPM Atrial Rate : 070 BPM P-R Int : 170 ms QRS Dur : 086 ms QT Int : 240 ms P-R-T Axes : 045 -10 024 degrees QTc Int : 259 ms Poor data quality, interpretation may be adversely affected Sinus rhythm Low voltage QRS Nonspecific T wave abnormality Abnormal ECG No previous ECGs available Confirmed by Grant Beauchamp ([id number]) on 01/28/2020 5:26:25 PM Referred By: Javier Meade Confirmed By:Grant Beauchamp
--- NOTE | 2020-01-28 17:28 | Electrocardiogram Report ---
Test Reason : Blood Pressure : / mmHG Vent. Rate : 081 BPM Atrial Rate : 081 BPM P-R Int : 176 ms QRS Dur : 086 ms QT Int : 368 ms P-R-T Axes : 039 -12 027 degrees QTc Int : 427 ms Normal sinus rhythm Low voltage QRS Borderline ECG When compared with ECG of 28-JAN-2020 08:42, (unconfirmed) No significant change Confirmed by Grant Beauchamp ([id number]) on 01/28/2020 5:28:01 PM Referred By: Javier Meade Confirmed By:Grant Beauchamp
[2020-01-29] MEDS: IBUPROFEN 600 MG TAB PO PRN ×4 (04:31→23:04)
[2020-01-29 06:19] LABS: Hematocrit (blood only) 32.8 % (37-47); Hemoglobin 10.8 g/dL (12.0-16.0); Mean Corpuscular Hemoglobin 29.5 pg (25-34); Mean Corpuscular Hgb Conc 32.9 g/dL (32-36); Mean Corpuscular Volume 89.6 fL (80-100); Mean Platelet Volume 10.2 fL (7.4-10.4); Platelet Count 183 K/uL (130-400); RDW Coefficient of Variation 13.2 % (11.5-14.5); RDW Standard Deviation 43.2 fL (36.4-46.3); Red Blood Count 3.66 M/uL (4.2-5.4); White Blood Count 7.44 K/uL (4.8-10.8)
[2020-01-29] MEDS: PRENATAL VITAMIN 1 TAB PO SCH (07:50)
[2020-01-29] MEDS: DOCUSATE SODIUM 100 MG CAP PO SCH ×2 (07:50→20:32)
--- NOTE | 2020-01-29 08:56 | Obstetrical Progress Note ---
Date of Service January 29, 2020 Assessment & Plan Admission and Anticipated Discharge Date Admission Date: January 28, 2020 Physical Exam Physical Exam: abdomen soft and non tender no calf tenderness ambulating well no dizziness vaginal bleeding scant hgb 10.8 patient feels good Results & Data ([facility]) Vital Signs (Past 12 Hours) Vital Signs Temp Pulse Resp BP Pulse Ox 01/29/20 04:25 36.6 C 66 16 98/61 L 96 01/28/20 23:15 36.6 C 72 20 98/64 L 97
--- NOTE | 2020-01-29 09:41 | Hospitalist Progress Note ---
Date of Service January 29, 2020 Assessment & Plan (1) Chest pressure: chest pressure ddx -cardiac - coronary dissection unlikely w reassuring EKG and bedside echo; serial troponin have been negative Echo is read as normal by cardiology -pulmonary - VTE possible - bedside venous dopplers negative; D dimer positive simply from /L&D/etc - does not have fever/cough or other s/s infection - and family has been quarantined for 5wks with little to no outside contact per making COVID19 low probability; obviously follow clinically and re-eval if situation changes. -GI -has had significant reflux during end of , possible that she's having bad bout of reflux causing pressure - particularly given significant distress with fortunately little objectively worrisome - -OB related - Hgb stable early this AM, and no clinically significant bleeding so acute blood loss anemia unlikely; repeat Hgb is pending - does have headache - LFTs and CBC pending, Mag ordered by family specialist in case of late eclamptic picture - will d/w OB as far as any other L&D/ specific syndromes that could be causative for now: move to tele, give maalox+lidocaine, continue IV mag, echo, venous dopplers, CBC, CMP, trop, Ddimer, close clinical f/u Admission and Anticipated Discharge Date Admission Date: January 28, 2020 Subjective Patient had resolution of her symptoms with exception of very fleeting moments of feeling she can take a full breath. Her vitals are stable and she is off supplemental oxygen. She is able to take full deep breaths during examination. Review of Systems Review of Systems: Mild distress and fatigue no headache, blurry or double vision no speech or swallowing issues no chest pain, pressure or palpitations no shortness of breath, cough or wheezes no abdominal pain, nausea or vomiting, diarrhea or constipation no dysuria, hematuria or frequency no focal joint pain or swelling no back pain, CVA tenderness or radicular pain no bruising, bleeding or rashes no focal signs of weakness or numbness or altered sensation no complaints or anxiety or depression Physical Exam Physical Exam: The patient appeared well nourished and normally developed. Vital signs as documented. Head exam is unremarkable. No scleral icterus Neck is without JVD, thyromegaly, or carotid bruits. Lungs are clear to auscultation and percussion. Cardiac exam, Rhythm is regular.. No murmurs, rubs or gallops. Abdominal exam reveals normal bowel sounds, Extremities are nonedematous and both pedal pulses are normal. Neurologic exam is alert and oriented, no focal loss of strength or sensation Skin is without bruises or rashes Psychologically is without concerns for anxiety or depression Results & Data Results & Data ([facility]) Vital Signs (Past 12 Hours) Vital Signs Temp Pulse Pulse Resp BP Pulse Ox 01/29/20 08:15 97.9 F 66 66 16 105/69 98 01/29/20 04:25 97.9 F 66 16 98/61 L 96 01/28/20 23:15 97.9 F 72 20 98/64 L 97 PG Care Time/CCT Total # of Minutes Spent Total Time Spent with Patient: Total time spent is greater than 50% in coordination of care (as documented) at patient's floor/unit and/or counseling patient: Coding Level of Care Code 00218 Subseq Hosp Care Lvl 2 Diagnoses Chest pressure R07.89
[2020-01-29] MEDS ORDERED: bisacodyL 5 MG TABEC PO SCH (20:00)
[2020-01-30] MEDS: IBUPROFEN 600 MG TAB PO PRN ×2 (06:58→11:53)
[2020-01-30] MEDS ORDERED: bisacodyL 10 MG SUPP PR PRN (07:00)
[2020-01-30 07:04] LABS: Hematocrit (blood only) 33.7 % (37-47); Hemoglobin 11.2 g/dL (12.0-16.0)
[2020-01-30] MEDS: PRENATAL VITAMIN 1 TAB PO SCH (08:15)
[2020-01-30] MEDS: DOCUSATE SODIUM 100 MG CAP PO SCH (08:15)
[2020-01-30 08:59] VITALS: PULSE 60; TEMP 98.1; O2SAT 98
--- NOTE | 2020-01-30 09:24 | Obstetrical Progress Note ---
Date of Service January 30, 2020 Assessment & Plan Admission and Anticipated Discharge Date Admission Date: January 28, 2020 Physical Exam Physical Exam: abdomen soft and non tender no calf tenderness ambulating well vaginal bleeding scant hgb 11.2 pain controlled with motrin Results & Data ([facility]) Vital Signs (Past 12 Hours) Vital Signs Temp Pulse Resp BP Pulse Ox 01/30/20 08:15 36.7 C 60 18 108/72 98 01/29/20 23:00 36.5 C 67 18 107/70
[2020-01-30 10:50] VITALS: BP 92/58
--- NOTE | 2020-02-05 12:20 | Discharge Summary (DS) ---
The patient was admitted in active labor and delivered a live via direct occiput anterior position. She is a 3, para 3, blood type is B positive, group B strep negative. She delivered in the early hours of the morning. Later that morning, she complained to the nurses of abdominal and chest pain. She was placed on a pulse ox. Pulse ox was 97 on room air. Vital signs were normal and she went through a period where she seemed to be somewhat disoriented. They called a code. Dr. Min came up. He ultrasounded her heart and the deep veins of her legs. Her heart seemed to be performing well. There was no evidence of cardiomyopathy. The veins were clear. They brought her down to PACU for monitoring. She was stable and basically she requested to come back on the floor with only about 10-12 hours of having been monitored. After that, she did fine. No particular cause was found for the spell and her predelivery hemoglobin was 10.8, post-delivery was 11.2. Her labs were all acceptable and she was discharged on 01/29, ambulating well, eating well, well-oriented with no symptoms or sequelae from that incident.
--- NOTE | 2020-02-07 14:58 | Delivery Summary ---
DATE OF OPERATION: 01/28/2020 Mrs. Villar was admitted in active labor at 39 weeks 1 day. She had spontaneous rupture of membranes. Eventually, she received epidural. She received good control from the epidural. Her labor was augmented with some IV Pitocin. She went to full dilatation, delivered a live infant via direct occiput anterior position over an intact perineum. Infant was suctioned through the mouth and the nose. Cord was clamped, cut by the father. Cord blood was taken. Placenta was removed with IV Pitocin running. Inspection of the perineum revealed it to be intact. Estimated blood loss was 100 mL and Apgars were deferred to the nurses. I attest to the content of the Intraoperative Record and any orders documented therein. Any exception s are noted below.
== END 2020-01-30 15:10 | disposition home or self-care (01) | DRG 807 ==
LOC: OPB 00:06 → 4S1 00:09 → 4S2 08:07 → 2S 10:50 → 4S2 18:58